=== PATIENT | female | born 1955 | race Caucasian/White ===

== ENCOUNTER 2022-08-26 08:13 | Day surgery (SDC) | payer MEDICARE, OTHER ==
[~2022-08-26] VITALS: Ht 160 cm; Wt 58.2 kg
[~2022-08-26 08:13] MED LIST: COZAAR25 MG; FIBERCON1 TABLET PO; FLONASE ALLERG9.9 ML NAS; PEPCID20 MG PO; PROBIOTIC1 EAC8 PO
[2022-08-26 08:30] VITALS: BP 148/64
[2022-08-26 11:05] VITALS: BP 133/60
--- NOTE | 2022-08-26 12:08 | NUR ---
08/26/22 1208 Amaral,Faviola Comer 1045: DR. DOVER AT BEDSIDE TALKING WITH PATIENT. ICE WATER GIVEN TO PATIENT. 1055: DISCHARGE INSTRUCTIONS GIVEN TO PATIENT. 1105: PATIENT ASSISTED TO SIT AT BEDSIDE. TOLERATED WELL. PATIENT GETTING DRESSED. 1112: PATIENT DISCHARGED TO HOME WITH VIA WHEELCHAIR.
--- NOTE | 2022-08-27 11:23 | OR ---
[facility] [address] [place], [place] [address] Signed DATE OF OPERATION: 08/26/2022 SURGEON: Ed Dover MD PREOPERATIVE DIAGNOSES: 1. Gastroesophageal reflux symptoms. 2. Diarrhea alternating with constipation, probable IBS. POSTOPERATIVE DIAGNOSES: 1. Schatzki's ring with hiatal hernia. 2. Diverticulosis of colon. No evidence of colitis. PROCEDURES: 1. Esophagogastroduodenoscopy with biopsy. 2. Total colonoscopy to the cecum. ANESTHESIA: Intravenous sedation; fentanyl 150 mcg, Versed 8 mg. INDICATION: This 66-year-old white woman is a patient of Dr. Nereida Perkins and has had longstanding diarrhea alternating with constipation and prior history of colonoscopy many years ago. Notably, the patient was treated for C difficile colitis with fecal transplant while in [place] which has been curative to her C difficile infection. The patient additionally has gastroesophageal reflux symptoms. She is here to undergo colonoscopy as well as upper endoscopy. She understands the risk of bleeding, infection, and perforation. FINDINGS: Upper endoscopy showed a Schatzki's ring but no evidence of Galvan's epithelium. There was a hiatal hernia. On colonoscopy, the prep was excellent and the colon was normal entirely except for diverticular changes of the left colon and sigmoid. DESCRIPTION OF PROCEDURE: The patient was brought to the endoscopy suite and placed in the lateral decubitus position, given intravenous sedation to the point of slurred speech and nystagmus after undergoing topical lidocaine hypopharyngeal anesthesia. A bite block was placed. An Olympus video upper endoscope was passed in the hypopharynx. The vocal cords were Electronically Signed By: ED DOVER MD 08/27/22 1123 PATIENT NAME: FROYLAN CLEMENTS OPERATIVE REPORT DATE OF : 51 REPORT #: [id number] PHYSICIAN: ED DOVER MD PCP: NEREIDA PERKINS MD REPORT IS CONFIDENTIAL AND NOT TO BE RELEASED WITHOUT AUTHORIZATION [facility] [address] [place], [place] [address] Signed normal. The scope was advanced to the esophagus, throughout its length it was normal except in the distal portion where there was a Schatzki's ring. The scope was easily passed through this and to the stomach which was normal on inspection with no evidence of bile or other problem. The rugal folds were normal. The antrum was normal as was the pylorus. The scope was passed through the pylorus into the duodenum, which was normal. Biopsies were obtained to assess for celiac disease. The scope was withdrawn and biopsies then taken of the antrum for both OBDULIA and pathologic testing. Retroflexed view was undertaken showing a moderate-sized hiatal hernia. The scope was straightened withdrawn and biopsies taken of the distal esophagus which did have chronic inflammatory change. The Schatzki's ring was separately biopsied. The scope was then withdrawn and biopsies taken of the midesophagus to assess for eosinophilic esophagitis as well. The scope was then removed. Plans were then made for colonoscopy. Additional sedation was given. Digital rectal examination was normal. An Olympus video colonoscope was passed in the rectum and manipulated throughout the colon ultimately intubating the cecum itself. The ileocecal valve and appendiceal orifice were normal. Scope was withdrawn from that point. Examination throughout showed no sign of abnormality other than diverticular change of the left colon and sigmoid. Retroflexed view of the rectum was normal. Scope was removed and the patient was taken to the recovery room in good condition. CONCLUDING DIAGNOSES: 1. Hiatal hernia with Schatzki's ring on upper endoscopy. 2. Diverticulosis of the left colon. PLAN: We will recommend the patient to consider a low FODMAP diet. Resources will be given for her to consider a trial of that. As regards to her Schatzki's ring, we will have her continue with Pepcid 20 mg daily b.i.d. if desired. She will return to see us in approximately four weeks. MD ADRIANA Bowden/NELIAL /[id number] Electronically Signed By: ED DOVER MD 08/27/22 1123 PATIENT NAME: FROYLAN CLEMENTS OPERATIVE REPORT DATE OF : 51 REPORT #: [id number] PHYSICIAN: ED DOVER MD PCP: NEREIDA PERKINS MD REPORT IS CONFIDENTIAL AND NOT TO BE RELEASED WITHOUT AUTHORIZATION [facility] [address] [place], [place] [address] Signed cc: Dr. Nereida Perkins Copies: ~ Electronically Signed By: ED DOVER MD 08/27/22 1123 PATIENT NAME: FROYLAN CLEMENTS OPERATIVE REPORT DATE OF : 51 REPORT #: [id number] PHYSICIAN: ED DOVER MD PCP: NEREIDA PERKINS MD REPORT IS CONFIDENTIAL AND NOT TO BE RELEASED WITHOUT AUTHORIZATION
--- NOTE | 2022-08-29 18:17 | PATH ---
[facility] [address] [place], [place] [address] Signed SPECIMEN(S): A DUODENAL BIOPSY SPECIMEN(S): B ANTRUM/PYLORUS BIOPSY SPECIMEN(S): C SCHATZKI'S RING BIOPSY SPECIMEN(S): D DISTAL ESOPHAGEAL BIOPSY SPECIMEN(S): E MID ESOPHAGEAL BIOPSY SPECIMEN SOURCE: A. DUODENAL BIOPSY B. ANTRUM/PYLORUS BIOPSY C. SCHATZKI'S RING BIOPSY D. DISTAL ESOPHAGEAL BIOPSY E. MID ESOPHAGEAL BIOPSY CLINICAL HISTORY: Family history of colon cancer; diarrhea; GERD. Post: Hiatal hernia; Schatzki's ring; diverticulosis. FINAL PATHOLOGIC DIAGNOSIS: A. Duodenum, biopsy: - Benign duodenal mucosa with no significant pathologic abnormality. - No celiac sprue identified by routine stain. - No ulcer or dysplasia identified. B. Antrum/pylorus stomach, biopsy: - Benign gastric mucosa with no significant pathologic abnormality. - No Helicobacter organisms identified by routine stain. - No ulcer, dysplasia, or intestinal metaplasia identified. C. Esophagus, Schatzki's ring, biopsy: - Benign esophageal squamous mucosa with rare isolated intramucosal eosinophil. - No ulcer, dysplasia, or intestinal metaplasia identified. D. Distal esophagus, biopsy: - Benign esophageal squamous mucosa with no significant pathologic abnormality. - No intramucosal eosinophils identified. - No ulcer, dysplasia, or intestinal metaplasia identified. E. Mid esophagus, biopsy: - Benign esophageal squamous mucosa with no significant pathologic abnormality. - No intramucosal eosinophils identified. - No ulcer, dysplasia, or intestinal metaplasia identified. PATIENT NAME: FROYLAN CLEMENTS PATHOLOGY DATE OF : 51 REPORT #: [id number] PHYSICIAN: MATI DESIR PCP: KAT PERKINS MD REPORT IS CONFIDENTIAL AND NOT TO BE RELEASED WITHOUT AUTHORIZATION [facility] [address] [place], [place] [address] Signed JLP:tobiass:[id number] MICROSCOPIC EXAMINATION: Histologic sections of all submitted blocks are examined by light microscopy. These findings, together with the gross examination, support the pathologic diagnosis. GROSS DESCRIPTION: A. The specimen, labeled and designated "Dylon, duodenal biopsy," is received in formalin and consists of three cook soft tissue fragments, ranging from 0.2 to 0.4 cm. Entirely submitted in (A1). B. The specimen, labeled and designated "Dylon, antrum/pylorus biopsy," is received in formalin and consists of two cook soft tissue fragments, ranging from 0.3 to 0.4 cm. Entirely submitted in (B1). C. The specimen, labeled and designated "Dylon, Schatzki's ring biopsy," is received in formalin and consists of two cook soft tissue fragments, ranging from 0.2 to 0.4 cm. Entirely submitted in (C1). D. The specimen, labeled and designated "Dylon, distal esophageal biopsy," is received in formalin and consists of two cook soft tissue fragments, ranging from 0.4 to 0.6 cm. Entirely submitted in (D1). E. The specimen, labeled and designated "Dylon, mid esophageal biopsy," is received in formalin and consists of two cook soft tissue fragments, ranging from 0.3 to 0.6 cm. Entirely submitted in (E1). VB (under the direct supervision of a pathologist) The Gross Description was prepared using a voice recognition system. The report was reviewed for accuracy; however, sound-alike word errors, addition and/or deletions may occur. If there is any question about this report, please contact Client Services. PERFORMING LABORATORY: The technical component was performed by [email or web address], [address] [place] [id number] (CLIA# [id number]). Professional interpretation was performed by [facility], [address] [place] [id number] (CLIA#: [id number]). Diagnostician: Da Uribe MD PATIENT NAME: FROYLAN CLEMENTS PATHOLOGY DATE OF : 51 REPORT #: [id number] PHYSICIAN: MATI PATHOLOGY PCP: KAT PERKINS MD REPORT IS CONFIDENTIAL AND NOT TO BE RELEASED WITHOUT AUTHORIZATION [facility] [address] [place] [id number] Signed Pathologist Electronically Signed 08/29/2022 Copies: ~ PATIENT NAME: FROYLAN CLEMENTS PATHOLOGY DATE OF : 51 REPORT #: [id number] PHYSICIAN: MATI DESIR PCP: KAT PERKINS MD REPORT IS CONFIDENTIAL AND NOT TO BE RELEASED WITHOUT AUTHORIZATION
== END 2022-08-26 11:12 | disposition home or self-care (01) ==
LOC: OPS 08:13 → DS 08:15 → OPS 10:00 → DS 09-16 07:30
PROVIDERS: ATTEND Surgery
PROC: 0DB28ZX Excision of Middle Esophagus, Via Natural or Artificial Opening Endoscopic, Diagnostic (ICD-10-PCS; 2022-08-26)
PROC: 0DB38ZX Excision of Lower Esophagus, Via Natural or Artificial Opening Endoscopic, Diagnostic (ICD-10-PCS; 2022-08-26)
PROC: 0DB58ZX Excision of Esophagus, Via Natural or Artificial Opening Endoscopic, Diagnostic (ICD-10-PCS; 2022-08-26)
PROC: 0DJD8ZZ Inspection of Lower Intestinal Tract, Via Natural or Artificial Opening Endoscopic (ICD-10-PCS; 2022-08-26)
PROC: 0DB98ZX Excision of Duodenum, Via Natural or Artificial Opening Endoscopic, Diagnostic (ICD-10-PCS; principal; 2022-08-26 10:00)
PROC: 0DB68ZX Excision of Stomach, Via Natural or Artificial Opening Endoscopic, Diagnostic (ICD-10-PCS; 2022-08-26 10:00)
DX: K57.30 Diverticulosis of large intestine without perforation or abscess without bleeding (principal); R19.7 Diarrhea, unspecified; K59.00 Constipation, unspecified; Z86.19 Personal history of other infectious and parasitic diseases; Z90.49 Acquired absence of other specified parts of digestive tract; Z90.711 Acquired absence of uterus with remaining cervical stump; K21.00 Gastro-esophageal reflux disease with esophagitis, without bleeding; K22.2 Esophageal obstruction; K44.9 Diaphragmatic hernia without obstruction or gangrene
CPT/HCPCS: 99153; G0500; J2250; J3010; J7121